=== PATIENT | male | born 1945 | race Hispanic/Latino ===

== ENCOUNTER 2017-02-17 08:56 | Emergency (ER) | payer MEDICARE ==
[2017-02-17 09:37] LABS: BASOPHILS % (AUTO) 0.7 % (0.0-5.0); HEMATOCRIT 40.4 % (42-54); LYMPHOCYTES % (AUTO) 20.6 % (21.0-51.0); MEAN CORPUSCULAR HEMOGLOBIN 30.2 pg (27.0-33.0); MEAN CORPUSCULAR HGB CONC 33.6 g/dL (32.0-36.0); MEAN CORPUSCULAR VOLUME 89.8 fL (79-99); MONOCYTES % (AUTO) 8.1 % (3.0-13.0); NEUTROPHILS % (AUTO) 68.6 % (40.0-77.0); PLATELET COUNT (AUTO) 154 K/uL (130-400); RED CELL DISTRIBUTION WIDTH 13.7 % (11.0-15.5); WHITE BLOOD COUNT (AUTO) 7.4 K/uL (4.8-10.8)
[2017-02-17 09:45] LABS: CREATININE 1.2 mg/dL (0.5-1.5); POTASSIUM 3.9 mmol/L (3.5-5.1)
[2017-02-17] MEDS ORDERED: KETOROLAC TROMETHAMINE 30MG/ML ONE (10:16)
[2017-02-17] MEDS ORDERED: CLINDAMYCIN 600 MG/D5% WATER 50 ML IV ONE (10:21)
== END 2017-02-17 11:37 | disposition home or self-care (01) ==
LOC: EDH 08:56
DX: M06.4 Inflammatory polyarthropathy (principal); I10 Essential (primary) hypertension
CPT/HCPCS: 36415; 73110; 80048; 85025; 96365; 96375; 99285; J1885; J3490

== ENCOUNTER 2017-05-12 17:27 | Emergency (ER) | payer MEDICARE ==
[2017-05-12] MEDS ORDERED: OCTYL 2-CYANOACRYLATE 1 EACH TP ONE (18:52)
[2017-05-12] MEDS ORDERED: ACETAMINOPHEN EXTRA STRENGTH 500 MG TABLET ONE (18:53)
== END 2017-05-12 20:06 | disposition home or self-care (01) ==
LOC: EDH 17:27
DX: S06.0X0A Concussion without loss of consciousness, initial encounter (principal); S01.01XA Laceration without foreign body of scalp, initial encounter; I10 Essential (primary) hypertension; Z87.891 Personal history of nicotine dependence; W22.8XXA Striking against or struck by other objects, initial encounter; Y93.89 Activity, other specified; Y92.098 Other place in other non-institutional residence as the place of occurrence of the external cause; Y99.8 Other external cause status
CPT/HCPCS: 12031; 70450